=== PATIENT | female | born 1975 | race American Indian/Alaskan Native ===

== ENCOUNTER 2016-08-12 14:28 | Emergency (ER) | payer SELFPAY ==
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
[2016-08-12] MEDS ORDERED: TORADOL IM ONE (17:50)
[2016-08-12] MEDS ORDERED: CATAPRES ONE (18:17)
[2016-08-12] MEDS ORDERED: CATAPRES PO ONE (18:21)
[2016-08-13 01:43] VITALS: BP 160/100
== END 2016-08-12 19:15 | disposition home or self-care (01) ==
LOC: ED 14:28
DX: M25.562 Pain in left knee (principal); V49.49XA Driver injured in collision with other motor vehicles in traffic accident, initial encounter; Y93.9 Activity, unspecified; Y92.89 Other specified places as the place of occurrence of the external cause; Y99.9 Unspecified external cause status
CPT/HCPCS: 73562; 96372; 99284; J1885